=== PATIENT | male | born 2000 | race Caucasian/White ===

== ENCOUNTER 2018-04-27 21:05 | Emergency (ER) | payer OTHER ==
--- NOTE | 2018-04-27 21:32 | EDPHY ---
H & P Stated Complaint: [facility] fall, RIGHT shoulder dislocation Time Seen by Provider: 04/27/18 21:32 HPI/ROS: HPI: This is a 17-year-old male who presents with Chief Complaint: Right shoulder injury Location: Right shoulder Quality: Injury Duration: 1 hr prior to arrival Signs and Symptoms: No bleeding, no radiation, no numbness, no weakness, no tingling, no incontinence, + decreased range of motion, no swelling, + pain, no fever Timing: Acute Severity: 09/16 Context: Patient was playing softball when he hit the ball and then while sliding into 1st base extended his right hand and arm above his head. He reports that his right arm pulled backwards and hyperextended. He felt immediate pain and had decreased range of motion. Pain is described as severe, constant and worsened with any ranges of motion. Denies LOC/head injury/neck pain/dizziness/nausea/vomiting/amnesia. Denies any injury to his right elbow, right hand, right wrist. No prior history of shoulder dislocation. Modifying Factors: None Comment: ROS: A comprehensive 10 system review of systems is otherwise negative aside from elements mentioned in the history of present illness. MEDICAL/SURGICAL/SOCIAL HISTORY: Medical history: Left clavicle fracture, anxiety, acne Surgical history: Denies Social history: Student at [employer]. Nonsmoker. CONSTITUTIONAL: Moderate distress, teenage white male, awake and alert, polite and cooperative HEENT: Atraumatic and normocephalic. NECK: supple, no midline tenderness, flexion 45 degrees, extension 45 degrees, right and left lateral flexion 45 degrees. No meningismus. Cardiovascular: Normal S1/S2, regular rate, regular rhythm, without murmur rub or gallop. PULMONARY/CHEST: Symmetrical and nontender. no crepitus. Clear to auscultation bilaterally. Good air movement. No accessory muscle usage. ABDOMEN: Soft, nondistended, nontender, no ecchymosis. EXTREMITIES: 2/2 pulses, strength 5/5, right SHOULDER: Lacking normal rounded shoulder contour; increased space at SA joint; patient held with arm against body and elbow flexed at 90. Unable to touch left shoulder with right hand. Right ELBOW: Full extension to 180, flexion to 150, no tenderness over medial epicondyle, no tenderness over lateral epicondyle, no effusion. DIP/PIP/ MCP flexion/extension intact with good light touch sensation. no deformities, no clubbing, no cyanosis or edema. NEUROLOGICAL: no focal neuro deficits. GCS 15. Light touch sensation intact. SKIN: Warm and dry, no erythema. no rash. Good capillary refill. Source: Patient Exam Limitations: No limitations - Personal History Current Tetanus/Diphtheria Vaccine: Yes Current Tetanus Diphtheria and Acellular Pertussis (TDAP): Yes - Medical/Surgical History Hx Asthma: No Hx Chronic Respiratory Disease: No Hx Diabetes: No Hx Cardiac Disease: No Hx Renal Disease: No Hx Cirrhosis: No Hx Alcoholism: No Hx HIV/AIDS: No Hx Splenectomy or Spleen Trauma: No Other PMH: fx l clavicle, anxiety, acne - Social History Smoking Status: Never smoked Constitutional: Initial Vital Signs Temperature (C) 36.9 C 04/27/18 21:08 Heart Rate 99 04/27/18 21:08 Respiratory Rate 18 04/27/18 21:08 Blood Pressure 141/81 H 04/27/18 21:08 O2 Sat (%) 96 04/27/18 21:08 O2 Delivery Mode Room Air Allergies/Adverse Reactions: No Known Allergies Allergy (Unverified 04/27/18 21:08) Home Medications: Medication Instructions Recorded Citalopram 08/05/13 MINOCYCLINE HCL 04/27/18 Medical Decision Making - Diagnostics Imaging Results: Imaging Impressions Shoulder X-Ray 04/27/18 21:11 Impression: Anterior shoulder dislocation. Shoulder X-Ray 04/27/18 21:49 Impression: 1. Post reduction films demonstrate the humeral head and anatomic position. 2. On some views, there is elevation of the clavicle in relation to the acromion , as can be seen with acromioclavicular separation. This may however represent positioning artifact. Procedures: Procedure: Dislocation reduction. The dislocation of the right shoulder was reduced using Lauren technique without complications. Post reduction the patient's neurovascular exam is normal. Post reduction x-ray demonstrates reduction of the joint to the anatomic position. The procedure was performed by myself. Procedure: Splint placement. A right sling was applied. After application of the splint I returned and re- examined the patient. The splint was adequately immobilizing the joint and distal to the splint the patient's circulation and sensation was intact. ED Course/Re-evaluation: Vital signs reviewed and show elevated blood pressure likely secondary to pain upon arrival. Initial film shows anterior right shoulder dislocation with no fracture. Intranasal fentanyl and Ativan given Reduction successful on 1st attempt. Post reduction x-ray shows normal anatomic alignment Placed in sling with orthopedic follow-up No signs of neurovascular compromise/tenting of skin/compartment syndrome/ extremities and joints examined above and below area of concern and are neurovascularly intact. This patient was seen under the supervision of my primary supervising physician. I evaluated care for this patient independently. Differential Diagnosis: Shoulder injury differential diagnosis includes but is not limited to clavicle fracture, contusion, AC joint separation, rotator cuff injury, labral tear, humeral head fracture, sprain, scapula fracture. - Data Points Medications Given: Discontinued Medications Fentanyl (Sublimaze) 100 mcg NASAL EDNOW ONE Stop: 04/27/18 21:37 Last Admin: 04/27/18 21:40 Dose: 100 mcg Lorazepam (Ativan Injection) 1 mg NASAL EDNOW ONE Stop: 04/27/18 21:37 Last Admin: 04/27/18 21:40 Dose: 1 mg Departure - Departure Disposition: Home, Routine, Self-Care Clinical Impression: Dislocation of shoulder, right, closed Qualifiers: Encounter type: initial encounter Qualified Code(s): S43.004A - Unspecified dislocation of right shoulder joint, initial encounter Condition: Good Instructions: Shoulder Dislocation (ED), How to Use a Sling (ED) Additional Instructions: Wear the sling continuously except shower until seen by Orthopedics. Take Tylenol 650 mg every 4 hours and/or Ibuprofen 600 mg every 8 hours with food as needed for pain. Apply ice for 30 minutes at a time; 2-3 times per day for the next 1-2 days. Follow up with Orthopedics in 5-7 days at which time they will evaluate and recommend with you if conservative management versus further imaging is indicated. The x-rays obtained in the emergency department today demonstrate no evidence of an obvious fracture. Referrals: Leeroy Dickey MD [Medical Doctor] - As per Instructions
[2018-04-27] MEDS ORDERED: fentaNYL 100 MCG/2 ML INJ NASAL ONE (21:36)
[2018-04-27] MEDS ORDERED: LORazepam 2 MG/ML INJ NASAL ONE (21:36)
[2018-04-27 22:05] VITALS: BP 118/72
== END 2018-04-27 22:05 | disposition home or self-care (01) ==
PROC: 0RSJXZZ Reposition Right Shoulder Joint, External Approach (ICD-10-PCS; principal; 2018-04-27)
DX: S43.014A Anterior dislocation of right humerus, initial encounter (principal); W21.07XA Struck by softball, initial encounter; Y92.320 Baseball field as the place of occurrence of the external cause; Y93.64 Activity, baseball; Y99.9 Unspecified external cause status
CPT/HCPCS: A4565; J2060; J3010